=== PATIENT | male | born 1945 | race Caucasian/White ===

== ENCOUNTER 2023-12-30 00:30 | Day surgery (SDC) | payer MEDICARE, SELFPAY ==
[2023-12-22 15:23] VITALS: BMI 34.7
--- NOTE | 2023-12-22 16:00 | PC.NURSE ---
12/22/23 Spoke with _patient_ regarding medication ELIQUIS . Pt. verbalizes understanding that the last dose of _ELIQUIS_ is to be taken on __12/26/2023_ and the Endoscopist will instruct them when to restart after the procedure.
[2023-12-30 07:56] VITALS: BP 150/98; PULSE 77; RESP 20; TEMP 36.6; O2SAT 96
[2023-12-30] MEDS: LACTATED RINGERS 1,000 ML 150 ML IV CONT (08:09)
--- NOTE | 2023-12-30 08:11 | WPDANESEPPF ---
Anes - Initial Pre Proc Eval Procedure: Operation Date: 12/30/23 09:00 Proposed Procedures p Screening Colonoscopy - Sekou Dickens MD Date/Time: 12/30/23 08:11 Surgeon: Sekou Dickens MD Pre Op Diagnosis: Neoplasm Screening Patient Data Age: 78 Gender: M Height: 1.68 m Weight: 94.7 kg Last Vital Signs Temp 97.9 F 12/30/23 07:56 Pulse 77 12/30/23 07:56 Resp 20 12/30/23 07:56 BP 150/98 H 12/30/23 07:56 Pulse Ox 96 12/30/23 07:56 O2 Del Method Room Air 12/30/23 07:56 Allergies Allergy/AdvReac Type Severity Reaction Status Date / Time No Known Allergies Allergy Verified 12/30/23 07:54 Home Medications Medication Instructions Recorded Confirmed Type albuterol sulfate 90 mcg/actuation 2 puff inhalation Q6H PRN 12/22/23 12/30/23 History aerosol inhaler Shortness Of Breath Or Wheezing amlodipine 10 mg tablet 10 mg PO DAILY 12/22/23 12/30/23 History apixaban 5 mg tablet (Eliquis) 5 mg PO BID 12/22/23 12/30/23 History doxazosin 4 mg tablet 2 mg PO QPM 12/22/23 12/30/23 History latanoprost 0.005 % eye drops 1 drp EACH EYE QPM 12/22/23 12/30/23 History lisinopril 40 mg tablet 60 mg PO QPM 12/22/23 12/30/23 History metoprolol succinate 50 mg 25 mg PO DAILY 12/22/23 12/30/23 History tablet,extended release 24 hr rosuvastatin 5 mg tablet 5 mg PO QPM 12/22/23 12/30/23 History timolol maleate 0.5 % eye gel 1 drp EACH EYE BID QAM 12/22/23 12/30/23 History forming solution Patient hx anesthesia problems: none Family hx anesthesia problems: none Results Review: All pre-operative results and documents have been reviewed as part of the pre-operative evaluation. [facility] Social History Social History Years smoked: 20 Smoking status: Former smoker Tobacco type: cigarettes Alcohol intake: never Substance use: never Spiritual care concerns: No Anes - Eval Final PreProcedure Day of Procedure 12/30/23 08:11 Patient weight: overweight Heart: regular rate and rhythm Lungs: clear to auscultation Airway: Mallampati scale class II Neurological: alert and oriented Last oral intake: >/= 8 hours ASA classification: III Emergent: no Anesthetic plan: proceed Anesthesia type and monitoring: general GIVS and standard monitoring Results Review: All pre-operative results and documents have been reviewed as part of the pre-operative evaluation. HTN, hyperlipidemia, paroxysmal a fib (s/p cardioversion 2022, still on eliquis on hold 4 days). Informed Consent: The patient's anesthetic plan and its attendant risks and benefits were discussed with the patient/family/POA. Questions were solicited and answers provided to the satisfaction of the patient/family/POA.
--- NOTE | 2023-12-30 09:12 | PM.IMHP ---
H&P: HPI History of Present Illness Date/Time: 12/30/23 09:12 Chief Complaint: Family history of colorectal cancer Narrative: This patient has family history of colorectal cancer. his mother had it when she was 60 years old. The patient has a history of colonic polyps, his last colonoscopy was around 5 years ago. Review of Systems Review of Systems: All systems reviewed & are unremarkable except as noted in HPI and below PMFSH Social History Social History Years smoked: 20 Smoking status: Former smoker Tobacco type: cigarettes Alcohol intake: never Substance use: never Spiritual care concerns: No Meds Home Medications and Allergies Home Medications Medication Instructions Recorded Confirmed Type albuterol sulfate 90 mcg/actuation 2 puff inhalation Q6H PRN 12/22/23 12/30/23 History aerosol inhaler Shortness Of Breath Or Wheezing amlodipine 10 mg tablet 10 mg PO DAILY 12/22/23 12/30/23 History apixaban 5 mg tablet (Eliquis) 5 mg PO BID 12/22/23 12/30/23 History doxazosin 4 mg tablet 2 mg PO QPM 12/22/23 12/30/23 History latanoprost 0.005 % eye drops 1 drp EACH EYE QPM 12/22/23 12/30/23 History lisinopril 40 mg tablet 60 mg PO QPM 12/22/23 12/30/23 History metoprolol succinate 50 mg 25 mg PO DAILY 12/22/23 12/30/23 History tablet,extended release 24 hr rosuvastatin 5 mg tablet 5 mg PO QPM 12/22/23 12/30/23 History timolol maleate 0.5 % eye gel 1 drp EACH EYE BID QAM 12/22/23 12/30/23 History forming solution Allergies Allergy/AdvReac Type Severity Reaction Status Date / Time No Known Allergies Allergy Verified 12/30/23 07:54 Vital Signs Vital Signs - 24 hr 12/30/23 07:56 Temperature 97.9 F Pulse Rate 77 Respiratory Rate 20 Blood Pressure 150/98 H Pulse Oximetry 96 Oxygen Delivery Room Air Exam Const: General: cooperative and healthy appearing Resp: Effort & Inspection: normal respiratory effort and able to speak in complete sentences Auscultation: clear to auscultation bilaterally Cardio: Rate: regular rate Rhythm: regular rhythm GI: Inspection: normal to inspection GI Palp: No No hepatosplenomegaly present Auscultation: normal bowel sounds Rectal Exam: deferred Skin: General skin exam: normal color Psych: Appearance: grossly normal Mental Status: mental status grossly normal Assessment and Plan Assessment and plan (1) Family history of colon cancer: Code(s): Z80.0 - Family history of malignant neoplasm of digestive organs Status: Acute Assessment and Plan: The patient is deemed a good candidate for the procedure. Consent signed. Will proceed.
[2023-12-30 09:40] VITALS: BP 103/66; PULSE 62; RESP 16; O2SAT 96
[2023-12-30 09:50] VITALS: BP 109/70; PULSE 66; RESP 20; O2SAT 97
[2023-12-30 10:00] VITALS: BP 128/81; PULSE 62; RESP 18; O2SAT 99
== END 2023-12-30 10:16 | disposition home or self-care (01) ==
PROVIDERS: PCP Nurse Practitioner Family; Visit Provider Internal Medicine Gastroenterology
PROC: 0DJD8ZZ Inspection of Lower Intestinal Tract, Via Natural or Artificial Opening Endoscopic (ICD-10-PCS; CPT 45378; principal; 2023-12-30 09:00)
DX: Z12.11 Encounter for screening for malignant neoplasm of colon (principal); K57.30 Diverticulosis of large intestine without perforation or abscess without bleeding; K64.0 First degree hemorrhoids; Z80.0 Family history of malignant neoplasm of digestive organs; Z79.51 Long term (current) use of inhaled steroids; Z87.891 Personal history of nicotine dependence
CPT/HCPCS: G0105; J2003; J2704; J7120